=== PATIENT | female | born 1980 | race Caucasian/White ===

== ENCOUNTER → 2022-07-25 | Outpatient (CLI) | payer OTHER ==
--- NOTE | 2022-07-26 09:55 | MM ---
Reason for Exam: Screening (asymptomatic). Baseline mammogram. Patient History: Menarche at age 15. First Full-Term at age 33. Late child-bearing (after 32). Patient has history of breast feeding. Last menstrual period: 07/04/2022 Risk Values: Valarie 5 year model risk: 0.7%. NCI Lifetime model risk: 13.7%. Prior Study Comparison: Patient's first Mammogram. Tissue Density: The breast tissue is heterogeneously dense. This may lower the sensitivity of mammography. Findings: Analyzed By CAD. No significant mass, suspicious microcalcification, or other discrete abnormality is seen. Overall Assessment: Negative, BI-RAD 1 Management: Screening Mammogram of both breasts in 1 year. . Patient should continue monthly self-breast exams. A clinical breast exam by your physician is recommended on an annual basis. This exam should not preclude additional follow-up of suspicious palpable abnormalities. Note on Valarie scores and lifetime risk: 1. A Valarie score greater than 3% is considered moderate risk. If this is the case, consider specialist referral to assess eligibility for a risk reducing agent. 2. If overall lifetime risk for the development of breast cancer is 20% or higher, the patient may qualify for future screening with alternating mammogram and breast MRI. Electronically signed and approved by: Liliya Cedillo M.D. Radiologist
== END | disposition home or self-care (01) ==
LOC: RADMAMWWP 07:47
PROVIDERS: ATTEND Obstetrics & Gynecology
DX: Z12.31 Encounter for screening mammogram for malignant neoplasm of breast (principal)
CPT/HCPCS: 77067

== ENCOUNTER 2022-10-23 21:15 | Emergency (ER) | payer OTHER ==
[2022-10-23 21:19] VITALS: TEMP 99.1
[2022-10-23] MEDS ORDERED: KETOROLAC 15 MG/ML 1 ML VIAL IM STA (21:36)
[2022-10-23] MEDS ORDERED: HYDROcodone/APAP 5-325MG 1 EACH TAB PO STA (21:36)
--- NOTE | 2022-10-23 21:49 | ED ---
Lower Extremity Injury HPI - General Chief Complaint: Extremity Injury, Lower Stated Complaint: Right leg injury Time Seen by Provider: 10/23/22 21:19 Source: patient, RN notes reviewed Mode of arrival: wheelchair Limitations: no limitations - History of Present Illness Initial Comments: This is a 42-year-old female who presents to the emergency department for an injury to the right thigh. States that earlier today she was kicked in the thigh by her horse. She was able to limp to the barn and call her . However, since then, she has not been able to bear weight on the right leg. States that she is somewhat scared to fully try and put pressure on it as well. She has not yet taken anything for pain. The area is also very tender to the t ouch. Denies sustaining any other injuries. Denies any fevers, chills, sore throat, cough, dyspnea, chest pain, palpitations, abdominal pain, nausea, vomiting, diarrhea, back pain, or head aches. MD Complaint: thigh injury - Related Data Home Medications Medication Instructions Recorded Confirmed Pnv,Calcium 72/Iron/Folic Acid 1 tab PO DAILY 01/24/16 01/25/16 [ Plus Tablet] Previous Rx's Medication Instructions Recorded Ibuprofen [Motrin] 600 mg PO Q6HR PRN #0 tab 01/26/16 Allergies Allergy/AdvReac Type Severity Reaction Status Date / Time No Known Allergies Allergy Verified 10/23/22 21:19 Review of Systems ROS Statement: Those systems with pertinent positive or pertinent negative responses have been documented in the HPI. ROS Other: All systems not noted in ROS Statement are negative. Past Medical History Past Medical History: No Reported History History of Any Multi-Drug Resistant Organisms: None Reported Past Surgical History: Tonsillectomy Past Anesthesia/Blood Transfusion Reactions: No Reported Reaction Past Psychological History: No Psychological Hx Reported Past Drug Use History: None Reported - Past Family History Mother Family Medical History: No Reported History General Exam Limitations: no limitations General appearance: alert, in no apparent distress Head exam: Present: atraumatic, normocephalic, normal inspection Respiratory exam: Present: normal lung sounds bilaterally. Absent: respiratory distress, wheezes, rales, rhonchi, stridor Cardiovascular Exam: Present: regular rate, normal rhythm, normal heart sounds. Absent: systolic murmur, diastolic murmur, rubs, gallop, clicks Extremities exam: Present: other (Tenderness to palpation over the lateral superior aspect of the right thigh. Limited range of motion secondary to pain. 2+ DP and PT pulses. Capillary refill less than 1 second.) Neurological exam: Present: alert, oriented X3, CN II-XII intact Psychiatric exam: Present: normal affect, normal mood Skin exam: Present: warm, dry, intact, normal color. Absent: rash Course Vital Signs 10/23/22 10/23/22 21:16 22:53 Temperature 99.1 F Pulse Rate 73 58 L Respiratory 16 18 Rate Blood Pressure 125/81 109/68 O2 Sat by Pulse 99 99 Oximetry Medical Decision Making - Medical Decision Making This is a 42-year-old female who presents to the emergency department for a right leg injury. Was pt. sent in by a medical professional or institution? @ -No Did you speak to anyone other than the patient for history? @ -No Did you review nursing and triage notes? @ -Yes, and I agree, it is accurate with regards to the patient's symptoms. Were old charts reviewed? @ -No Differential Diagnosis? @ -Differential Leg Pain: Leg fracture, leg sprain, contusion, DVT, PVD, arterial insufficiency, iliac artery aneurysm, cellulitis, compartment syndrome, tendinopathy, nerve entrapment, piriformis syndrome, osteoarthritis, rhabdomyolysis, myositis, cramping from an electrolyte imbalance, this is not meant to be an all inclusive list. EKG interpreted by me (3pts min.)? @ -Not obtained X-rays interpreted by me (1pt min.)? @ -X-ray of the pelvis and right femur obtained. My interpretation identifies no acute fractures. CT interpreted by me (1pt min.)? @ -Not obtained U/S interpreted by me (1pt. min.)? @ -Not obtained What testing was considered but not performed? (CT, X-rays, U/S, labs)? Why? @ -None What meds were considered but not given? Why? @ -None Did you discuss the management of the patient with other professionals? @ -No Did you reconcile home meds? @ -No Was smoking cessation discussed for >3mins.? @ -No Was critical care preformed (if so, how long)? @ -No Were there social determinants of health that impacted care today? How? (Homelessness, low income, unemployed, alcoholism, drug addiction, transportation, low edu. Level, literacy, decrease access to med. care, detention, rehab)? @ -No Was there de-escalation of care discussed even if they declined? (Discuss DNR or withdrawal of care, Hospice)? @ -No What co-morbidities impacted this encounter? (DM, HTN, Smoking, COPD, CAD, Cancer, CVA, Hep., AIDS, mental health diagnosis, sleep apnea, morbid obesity)? @ -None Was patient admitted / discharged? @ -Discharged. X-ray of the pelvis and right femur obtained revealing no acute process. Pain was controlled in the emergency department and the patient was able to ambulate. I did offer crutches, however she declined. Advised ibuprofen and Tylenol as needed for pain relief and applying ice for 15-20 minutes every 2-3 hours. Undiagnosed new problem with uncertain prognosis? @ -None Drug Therapy requiring intensive monitoring for toxicity (Heparin, Nitro, Insulin, Cardizem)? @ -None Were any procedures done? @ -None Diagnosis/symptom? @ -Right thigh injury, struck by horse Acute, or Chronic, or Acute on Chronic? @ -Acute Uncomplicated (without systemic symptoms) or Complicated (systemic symptoms)? @ -Uncomplicated Side effects of treatment? @ -None Exacerbation, Progression, or Severe Exacerbation] @ -Not applicable Poses a threat to life or bodily function? @ -The pain may have an impact on her ability to ambulate. Return precautions reviewed in depth, the patient is instructed to return to the emergency department with any new, worsening, or concerning symptoms. Patient verbalized understanding. This case was discussed in detail with the attending ED physician, Dr. Conrad. Presentation, findings, and treatment plan discussed in detail as well. - Radiology Data Radiology results: report reviewed, image reviewed Disposition Clinical Impression: Injury of right thigh, Struck by horse Disposition: HOME SELF-CARE Instructions (If sedation given, give patient instructions): Leg Pain (ED) Additional Instructions: Return to the emergency department with any new, worsening, or concerning symptoms. Alternate with ibuprofen and Tylenol as needed for pain relief. Apply ice for 15-20 minutes every 2-3 hours. Follow up with your primary care provider in 1-2 days. Is patient prescribed a controlled substance at d/c from ED?: No Referrals: None,Stated [Primary Care Provider] - 1-2 days
--- NOTE | 2022-10-23 22:02 | XR ---
EXAMINATION TYPE: XR pelvis AP view DATE OF EXAM: 10/23/2022 CLINICAL HISTORY: pain TECHNIQUE: Single view the pelvis is submitted. FINDINGS: No evidence for fracture, dislocation or bony lesion. Joint spaces are well-preserved. S I joints appear symmetric.IUD is noted. IMPRESSION: 1. No acute fracture or dislocation seen. ICD 10 NO FRACTURE, INITIAL EVALUATION
--- NOTE | 2022-10-23 22:03 | XR ---
EXAMINATION TYPE: XR femur RT DATE OF EXAM: 10/23/2022 CLINICAL HISTORY: pain TECHNIQUE: Two views of the right femur are obtained. COMPARISON: None. FINDINGS: There is no acute fracture or dislocation seen of the femur. The hip and knee joints appear within normal limits. The overlying soft tissue appears unremarkable. IMPRESSION: There is no acute fracture or dislocation seen of the femur. ICD 10 NO FRACTURE, INITIAL EVALUATION
[2022-10-23] MEDS ORDERED: ACET/COD 300 MG/30 MG STARTER PACK 6 TAB BTL PO STA (22:45)
[2022-10-23] MEDS ORDERED: IBUPROFEN 600 MG STARTER PACK 4 TAB BTL PO STA (22:45)
[2022-10-23 22:55] VITALS: BP 109/68; PULSE 58; RESP 18
== END 2022-10-23 22:55 | disposition home or self-care (01) ==
LOC: EC 21:15
DX: S79.921A Unspecified injury of right thigh, initial encounter (principal); W55.12XA Struck by horse, initial encounter
CPT/HCPCS: 72170; 73552; 99283; 96372; J1885